=== PATIENT | female | born 1935 | race Caucasian/White ===

== ENCOUNTER 2017-11-28 04:24 | Emergency (ER) | payer OTHER, BC ==
[~2017-11-28] VITALS: Ht 152.4 cm; Wt 85.1 kg
[~2017-11-28 04:24] MED LIST: ASPIRIN81 M1 PO; BISOPROLOL-HCT1 EAC3 PO; GLIMEPIRIDE2 MG PO; METFORMIN HCL500 MG PO; SIMVASTATIN40 M1 PO
[2017-11-28 05:56] LABS: HEMATOCRIT 36.3 % (36.0-46.0); HEMOGLOBIN 11.8 G/DL (11.9-15.5); MCH 26.9 PG (29.0-34.0); MCHC 32.5 G/DL (30.0-36.0); MCV 82.9 FL (83-99); PLATELET COUNT 270 K/uL (156-360); RBC DIS.WIDTH-CV 14.2 % (11.8-14.6); RBC DIS.WIDTH-SD 42.9 % (39-53); RED BLOOD COUNT 4.38 M/uL (3.80-5.20); WHITE BLOOD COUNT 9.4 K/uL (4.1-10.2)
[2017-11-28 06:33] VITALS: BP 148/71
[2017-11-29] MEDS ORDERED: CLEOCIN300 MG PO (03:47)
== END 2017-11-28 06:30 | disposition home or self-care (01) ==
LOC: EME → EDBD 04:24 → EME 04:24
PROVIDERS: Emergency Medicine
DX: R04.0 Epistaxis (principal); Z79.01 Long term (current) use of anticoagulants; Z79.02 Long term (current) use of antithrombotics/antiplatelets; I10 Essential (primary) hypertension; E11.9 Type 2 diabetes mellitus without complications; E78.5 Hyperlipidemia, unspecified; Z90.49 Acquired absence of other specified parts of digestive tract; Z79.84 Long term (current) use of oral hypoglycemic drugs; Z79.82 Long term (current) use of aspirin
CPT/HCPCS: 85027; 85610; 85730; 99281; 99285

== ENCOUNTER 2017-11-29 02:53 | Emergency (ER) | payer OTHER, BC ==
[~2017-11-29] VITALS: Ht 152.4 cm; Wt 81.6 kg
[2017-11-29] MEDS ORDERED: CLEOCIN300 MG PO (03:47)
[2017-11-29 04:07] VITALS: BP 128/61
== END 2017-11-29 04:07 | disposition home or self-care (01) ==
LOC: EME 02:53
PROC: 2Y41X5Z Packing of Nasal Region using Packing Material (ICD-10-PCS; principal; 2017-11-29)
DX: R04.0 Epistaxis (principal); I10 Essential (primary) hypertension; E11.9 Type 2 diabetes mellitus without complications; E78.5 Hyperlipidemia, unspecified; Z79.84 Long term (current) use of oral hypoglycemic drugs; Z79.82 Long term (current) use of aspirin; Z90.49 Acquired absence of other specified parts of digestive tract
CPT/HCPCS: 99281; 99283